=== PATIENT | male | born 1980 | race Caucasian/White ===

== ENCOUNTER 2017-12-09 06:25 | Day surgery (SDC) | payer BC ==
[~2017-12-09] VITALS: Ht 193 cm; Wt 159.8 kg
[~2017-12-09 06:25] MED LIST: ADDERALL XR 1515 MG PO; AMBIEN10 MG PO; FLEXERIL10 MG PO; PREVACID30 MG PO; PROAIR HFA8.5 GM IH; RELPAX20 MG PO; VOLTAREN50 MG PO
[2017-12-09 07:26] VITALS: BP 144/93
[2017-12-09] MEDS ORDERED: MEDROL DOSEPAK4 MG PO (10:32)
[2017-12-09 14:18] VITALS: BP 142/89
[2017-12-09 15:37] VITALS: BP 120/70
[2017-12-09 18:30] VITALS: BP 141/84
[2017-12-09 23:33] VITALS: BP 160/98
[2017-12-10 04:39] VITALS: BP 132/79
[2017-12-10 08:03] VITALS: BP 115/74
[2017-12-10 12:30] VITALS: BP 125/85
== END 2017-12-10 13:32 | disposition home or self-care (01) ==
LOC: SDC 06:25 → 2SOUTH 10:15 → 3EAST 10:15 → CANRESERV 10:33 → ENRESERV 10:33 → SDC 13:28 → ENRESERV 16:27 → 3EAST 17:53
PROC: 0RG10K1 Fusion of Cervical Vertebral Joint with Nonautologous Tissue Substitute, Posterior Approach, Posterior Column, Open Approach (ICD-10-PCS; principal; 2017-12-09)
DX: M50.222 Other cervical disc displacement at C5-C6 level (principal); G43.909 Migraine, unspecified, not intractable, without status migrainosus; K21.9 Gastro-esophageal reflux disease without esophagitis; Z88.2 Allergy status to sulfonamides; Z88.6 Allergy status to analgesic agent; Z91.041 Radiographic dye allergy status
CPT/HCPCS: 72020; 76000; C1713; G0378; J0131; J0330; J0690; J1100; J1170; J2250; J2300; J2405; J2710; J3010; J3480; J7643